=== PATIENT | male | born 1955 | race Caucasian/White ===

== ENCOUNTER 2021-12-26 11:44 | Emergency (ER) | payer OTHER, MEDICAID ==
[~2021-12-26] VITALS: Ht 177.8 cm; Wt 76.2 kg
[2021-12-26 11:53] VITALS: BP_SYST 145
[2021-12-26] MEDS ORDERED: AZIT-93 PO (14:22)
[2021-12-26] MEDS ORDERED: PRED20TA PO (14:22)
[2021-12-26 15:20] LABS: HEMATOCRIT 40.9 % (36-54); MEAN CORPUSCULAR HEMOGLOBIN 31 pg (27-31); MEAN CORPUSCULAR HGB CONC 34 % (32-36); MEAN CORPUSCULAR VOLUME 91 fL (79.0-98.0); PLATELET COUNT (AUTO) 214 K/uL (130-430); RED BLOOD CELL COUNT(AUTO) 4.51 MIL/uL (4.2-6.2); RED CELL DISTRIBUTION WIDTH 14.5 % (9.0-15.0); WHITE BLOOD COUNT (AUTO) 6.6 K/uL (4.8-10.8)
[2021-12-26 15:43] LABS: CALCIUM 8.8 mg/dL (8.4-11.0); CREATININE 0.75 mg/dL (0.55-1.30); POTASSIUM 4.2 mmol/L (3.5-5.1)
[2021-12-26 15:50] LABS: ALBUMIN 3.8 g/dL (3.4-4.8); TOTAL BILIRUBIN 0.4 mg/dL (0.0-1.0)
[2021-12-26 15:59] LABS: BASOPHILS % (MANUAL) 0 % (0-2); EOSINOPHILS % (MANUAL) 18 % (0-7); LYMPHOCYTES % (MANUAL) 25 % (20-46); MONOCYTES % (MANUAL) 5 % (0-11)
[2021-12-26 16:16] VITALS: BP_SYST 145
== END 2021-12-26 16:16 | disposition home or self-care (01) ==
LOC: SED 11:44
DX: J44.9 Chronic obstructive pulmonary disease, unspecified (principal); Z88.0 Allergy status to penicillin; Z79.899 Other long term (current) drug therapy
CPT/HCPCS: 36415; 71045; 80053; 84484; 85007; 85027; 93005; 99285

== ENCOUNTER 2021-12-31 16:16 | Emergency (ER) | payer OTHER, MEDICAID, SELFPAY ==
[~2021-12-31] VITALS: Ht 177.8 cm; Wt 76.2 kg
[~2021-12-31 16:16] MED LIST: AZIT-93 PO; PRED20TA PO
[2021-12-31 16:18] VITALS: BP_SYST 137
--- NOTE | 2021-12-31 16:18 | NUR ---
Patient to ER TENT 1 to gown for evaluation. Side rails up.
--- NOTE | 2021-12-31 16:20 | NUR ---
PT WAS SEEN HERE ON SUNDAY, DX PNA, RX OF Z-DONNA AND PREDNISONE, FINISHED ABX. STATES PREDNISONE WAS MAKING HIM ITCHY. HCING NAUSEA. REPORTS WANTING TO GET CHECKED UP ON. NO SOB, AMBULATORY, AAOX4, VSS, NO DISTRESS NOTED
--- NOTE | 2021-12-31 16:35 | NUR ---
ER DR. RUIZ EXAMINING PT
[2021-12-31 17:17] VITALS: BP_SYST 137
--- NOTE | 2021-12-31 17:18 | NUR ---
Patient given written and verbal discharge instructions and verbalizes understanding. ER MD discussed with patient the results and treatment provided. Patient in stable condition. ID arm band removed. NO Rx given. Patient educated on pain management and to follow up with PMD. Pain Scale 0/10. Opportunity for questions provided and answered. Medication side effect fact sheet provided.
== END 2021-12-31 17:17 | disposition home or self-care (01) ==
LOC: SED 16:16
DX: J06.9 Acute upper respiratory infection, unspecified (principal); J45.909 Unspecified asthma, uncomplicated; Z88.0 Allergy status to penicillin; Z79.899 Other long term (current) drug therapy
CPT/HCPCS: 99282